=== PATIENT | female | born 1955 | race Caucasian/White ===

== ENCOUNTER 2020-02-29 10:56 | Outpatient (CLI) | payer MEDICARE, OTHER, SELFPAY ==
--- NOTE | 2020-02-29 11:00 | EST_ITS ---
Patient Info Name: Marilou Montez Age: 64 years : 1955 Gender: Female Ht: 62 in Wt: 125 lbs BSA: 1.58 m2 Technical Quality: Good Exam Date: 02/29/2020 11:35 AM Exam Location: [facility] [facility] Patient Status: Outpatient Admit Date: 02/29/2020 Staff Ordering Physician: Dylan Lopez DO Asphalt Engineer: Keaton Chiang RDCS, RT Attending Provider: DYLAN LOPEZ DO Referring Physician: Alfred PITT; Exercise Technologist: Kelsey Mcgovern RDCS Exercise Physician: Dylan Lopez DO Exam Type: CA stress echo Study Info Indications R07.9 - Chest pain, unspecified Treadmill exercise stress echocardiogram is performed. Summary 1. 1. Negative Sekou exercise stress test for ischemic ST changes by ECG criteria. Patient achieved 80% MPHR for age group which reduces sensitivity of the test. 2. 2. Good functional capacity, achieving 10 METs of workload. 3. 3. Mild chronotropic incompetence achieving 124 bpm. 4. 4. Baseline hypertension. 5. 5. Appropriate HR recovery at 1 minute post exercise. 6. 6. Negative stress echocardiogram for ischemia by wall motion analysis. 7. 7. Patient informed of the above results. Stress Echo Findings Left Ventricle Appropriate increase in LV endocardial thickening with systole. Appropriate augmentation of contractility with systole. No wall motion abnormality. Left Ventricle Normal LV systolic function, no wall motion abnormality. Protocol: Sekou Stress ECG Details Stage: REST Duration (min): 3 min : 53 sec Speed (mph): 0.0 Grade (%): 0 HR (bpm): 58 SBP (mmHg): 142 DBP (mmHg): 81 METS: --- Stage: REST Duration (min): 11 min : 4 sec Speed (mph): 0.0 Grade (%): 0 HR (bpm): 66 SBP (mmHg): 142 DBP (mmHg): 81 METS: --- Stage: STAGE 1 Duration (min): 1 min : 0 sec Speed (mph): 1.7 Grade (%): 10 HR (bpm): 84 SBP (mmHg): 142 DBP (mmHg): 81 METS: --- Stage: STAGE 1 Duration (min): 2 min : 0 sec Speed (mph): 1.7 Grade (%): 10 HR (bpm): 96 SBP (mmHg): 142 DBP (mmHg): 81 METS: --- Stage: STAGE 1 Duration (min): 3 min : 0 sec Speed (mph): 1.7 Grade (%): 10 HR (bpm): 99 SBP (mmHg): 142 DBP (mmHg): 81 METS: --- Stage: STAGE 2 Duration (min): 1 min : 0 sec Speed (mph): 2.5 Grade (%): 12 HR (bpm): 104 SBP (mmHg): 142 DBP (mmHg): 81 METS: --- Stage: STAGE 2 Duration (min): 2 min : 0 sec Speed (mph): 2.5 Grade (%): 12 HR (bpm): 108 SBP (mmHg): 193 DBP (mmHg): 31 METS: --- Stage: STAGE 2 Duration (min): 3 min : 0 sec Speed (mph): 2.5 Grade (%): 12 HR (bpm): 110 SBP (mmHg): 193 DBP (mmHg): 31 METS: --- Stage: STAGE 3 Duration (min): 1 min : 0 sec Speed (mph): 3.4 Grade (%): 14 HR (bpm): 118 SBP (mmHg): 196 DBP (mmHg): 50 METS: --- Stage: STAGE 3 Duration (min): 2 min : 0 sec Speed (mph): 3.4 Grade (%): 14 HR (bpm): 123 SBP (mmHg): 196 DBP (mmHg): 50 METS:
== END 2020-02-29 10:57 | disposition home or self-care (01) ==
PROVIDERS: PCP Internal Medicine; Visit Provider Internal Medicine Cardiovascular Disease
DX: R07.9 Chest pain, unspecified (principal)
CPT/HCPCS: 93351

== ENCOUNTER 2021-10-16 00:42 | Day surgery (SDC) | payer MEDICARE, OTHER, SELFPAY ==
[2021-10-16 07:26] VITALS: BP 127/54; PULSE 60; RESP 20; TEMP 36.1; O2SAT 99; BMI 22.6
[2021-10-16] MEDS: LACTATED RINGERS 1,000 ML 150 ML IV CONT (07:39)
--- NOTE | 2021-10-16 08:02 | WPDGICN ---
Assessment and Plan Assessment and plan (1) Family history of colon cancer in mother: Code(s): Z80.0 - Family history of malignant neoplasm of digestive organs Status: Acute Assessment and Plan: Patient's mother has had colon cancer. Plan is for patient has screening surveillance colonoscopy at this time. Consider this at 5 year intervals in the future. GI Consult Note Consult date/time: 10/16/21 08:02 HPI: Marilou Montez is a 65 year old female Presents for screening colonoscopy. Patient's current weight appetite bowel movements are normal. She denies abdominal pain. She has had no bleeding. Family history is significant that her mother had colon cancer. Patient presents today for neoplasia screening. Review of Systems Review of Systems: All systems reviewed & are unremarkable except as noted in HPI and below PMFSH Past Medical History Medical History (Updated 10/16/21 @ 08:03 by Braeden Navarro MD) High cholesterol History of tumor removed on face Thyroid disease Surgical History Surgical History (Updated 02/20/21 @ 09:49 by Jocelin Hunt RN) H/O: hysterectomy Family History Family History Father Heart problem Mother Dementia Sibling Multiple sclerosis Other Diabetes mellitus Heart disease Hypertension Cancer Social History Social History Smoking status: Never smoker Alcohol intake: current Drinks per week: 1 Substance use: never Substance use type: does not use Living arrangements: with friend(s) Spiritual care concerns: No Meds Home Medications and Allergies Home Medications Medication Instructions Recorded Confirmed Type citalopram 20 mg tablet 20 mg PO DAILY 04/27/19 09/29/21 History simvastatin 10 mg tablet 10 mg PO DAILY 04/27/19 09/29/21 History thyroid (pork) 60 mg tablet 60 mg PO DAILY 04/27/19 09/29/21 History dextroamphetamine-amphetamine 10 10 mg PO QPM tablet 02/20/21 09/29/21 History mg tablet dextroamphetamine-amphetamine 20 20 mg PO QAM tablet 02/20/21 09/29/21 History mg tablet Allergies Allergy/AdvReac Type Severity Reaction Status Date / Time No Known Allergies Allergy Verified 10/16/21 07:25 Vital Signs Vital Signs - 24 hr 10/16/21 07:26 Temperature 96.9 F L Pulse Rate 60 Respiratory Rate 20 Blood Pressure 127/54 L Pulse Oximetry 99 Exam Narrative: Physical exam reveals patient be alert. Vital signs stable. HEENT exam is unremarkable. Patient is anicteric. Lungs are clear to auscultation and percussion. Heart is without murmur or extra sounds. Abdominal exam bowel sounds are present soft nontender with no organomegaly. Digital external rectal exam is normal.
--- NOTE | 2021-10-16 08:17 | P.PNAN_ITS ---
Anes - Initial Pre Proc Eval Procedure: Operation Date: 10/16/21 08:30 Proposed Procedures p Screening Colonoscopy - Braeden Navarro MD Date/Time: 10/16/21 08:17 Surgeon: Braeden Navarro MD Pre Op Diagnosis: neoplasm screening Patient Data Age: 65 Gender: F Height: 1.55 m Weight: 54.3 kg Last Vital Signs Temp 96.9 F L 10/16/21 07:26 Pulse 60 10/16/21 07:26 Resp 20 10/16/21 07:26 BP 127/54 L 10/16/21 07:26 Pulse Ox 99 10/16/21 07:26 Allergies Allergy/AdvReac Type Severity Reaction Status Date / Time No Known Allergies Allergy Verified 10/16/21 07:25 Home Medications Medication Instructions Recorded Confirmed Type citalopram 20 mg tablet 20 mg PO DAILY 04/27/19 09/29/21 History simvastatin 10 mg tablet 10 mg PO DAILY 04/27/19 09/29/21 History thyroid (pork) 60 mg tablet 60 mg PO DAILY 04/27/19 09/29/21 History dextroamphetamine-amphetamine 10 10 mg PO QPM tablet 02/20/21 09/29/21 History mg tablet dextroamphetamine-amphetamine 20 20 mg PO QAM tablet 02/20/21 09/29/21 History mg tablet Patient hx anesthesia problems: none Family hx anesthesia problems: none Results Review: All pre-operative results and documents have been reviewed as part of the pre-operative evaluation. [facility] Past Medical History Medical History (Updated 10/16/21 @ 08:03 by Braeden Navarro MD) High cholesterol History of tumor removed on face Thyroid disease Surgical History Surgical History (Updated 02/20/21 @ 09:49 by Jocelin Hunt RN) H/O: hysterectomy Family History Family History Father Heart problem Mother Dementia Sibling Multiple sclerosis Other Diabetes mellitus Heart disease Hypertension Cancer Social History Social History Smoking status: Never smoker Alcohol intake: current Drinks per week: 1 Substance use: never Substance use type: does not use Living arrangements: with friend(s) Spiritual care concerns: No Anes - Eval Final PreProcedure Day of Procedure 05/12/22 08:17 Patient weight: normal Heart: regular rate and rhythm Lungs: clear to auscultation Airway: Mallampati scale class II Neurological: alert and oriented Last oral intake: >/= 8 hours ASA classification: II Emergent: no Anesthetic plan: proceed Anesthesia type and monitoring: general GIVS and standard monitoring Results Review: All pre-operative results and documents have been reviewed as part of the pre-operative evaluation. Informed Consent: The patient's anesthetic plan and its attendant risks and benefits were discussed with the patient/family/POA. Questions were solicited and answers provided to the satisfaction of the patient/family/POA.
[2021-10-16] MEDS: SIMETHICONE ORAL SUSPENSION 20 MG/0.3 ML 30 ML BOTTLE 0.6 ML IRRIGATION (09:03)
[2021-10-16 09:12] VITALS: BP 94/52; PULSE 62; RESP 16; O2SAT 97
[2021-10-16 09:22] VITALS: BP 104/61; PULSE 60; RESP 15; O2SAT 98
[2021-10-16 09:32] VITALS: BP 119/56; PULSE 53; RESP 23; O2SAT 98
== END 2021-10-16 09:39 | disposition home or self-care (01) ==
PROVIDERS: PCP Internal Medicine; Visit Provider Internal Medicine Gastroenterology
PROC: 0DJD8ZZ Inspection of Lower Intestinal Tract, Via Natural or Artificial Opening Endoscopic (ICD-10-PCS; CPT 45378; principal; 2021-10-16 08:30)
DX: Z12.11 Encounter for screening for malignant neoplasm of colon (principal); K64.8 Other hemorrhoids; Z80.0 Family history of malignant neoplasm of digestive organs; E78.00 Pure hypercholesterolemia, unspecified; E07.9 Disorder of thyroid, unspecified
CPT/HCPCS: G0105; J2001; J2704; J7120

== ENCOUNTER 2023-01-11 09:26 | Outpatient (CLI) | payer MEDICARE, OTHER, SELFPAY ==
--- NOTE | ~2023-01-11 | NM_ITS ---
EXAMINATION: NM shy stress w perfusion DATE: 01/11/2023 12:01 INDICATION: Chest pain TECHNIQUE: Rest images were obtained following intravenous administration of 9.44 mCi Tc99m tetrofosm in (Myoview). The patient was infused intravenously with Lexiscan (Regadenoson). Then, 30 mCi Tc99m t etrofosmin (Myoview) was administered intravenously, and stress images were obtained. Data was recons tructed into short axis and horizontal and vertical long axis SPECT images. Gated SPECT images were a lso obtained. COMPARISON: None. FINDINGS: There is no definite reversible or fixed perfusion abnormality to suggest ischemia or infar ction. There is normal left ventricular chamber size, wall motion and ejection fraction. Left ventr icular ejection fraction measures >70%. IMPRESSION: 1. Normal myocardial perfusion at rest and during stress. 2. Left ventricular ejection fraction measuring >70%. Reviewed, dictated and finalized at location B.
--- NOTE | 2023-01-11 09:40 | EST_ITS ---
Patient Info Name: Marilou Montez Age: 67 years : 1955 Gender: Female Ht: 62 in Wt: 125 lbs BSA: 1.58 m2 HR: 60 bpm BP: 132 / 59 mmHg Heart Rhythm: Sinus Rhythm Exam Date: 01/11/2023 10:39 AM Exam Location: [facility] Stress Patient Status: Outpatient Admit Date: 01/11/2023 Staff Ordering Physician: Dylan Simon DO Attending Provider: Dylan Simon DO Exercise Technologist: Keisha Billy CT Nurse: Giulia Kirk APN Exercise Physician: Dylan Simon DO Exam Type: CA stress shy w NM Study Info Indications R07.89 - Other chest pain A regadenoson stress test was performed. Summary 1. 1. Negative lexiscan stress test for ischemic ST changes by ECG criteria. 2. 2. Stable hemodynamics throughout the test. 3. 3. Nuclear scan to follow and will be reported separately. Please correlate with it. 4. 4. Patient informed of the above results. Protocol: Lexiscan Stress ECG Details Stage: REST Duration (min): 1 min : 3 sec HR (bpm): 60 SBP (mmHg): 132 DBP (mmHg): 59 Stage: REST Duration (min): 13 min : 25 sec HR (bpm): 63 SBP (mmHg): 132 DBP (mmHg): 59 Stage: REST Duration (min): 13 min : 30 sec HR (bpm): 62 SBP (mmHg): 132 DBP (mmHg): 59 Stage: STAGE 1 Duration (min): 0 min : 59 sec HR (bpm): 74 SBP (mmHg): 126 DBP (mmHg): 44 Stage: RECOVERY Duration (min): 1 min : 0 sec HR (bpm): 79 SBP (mmHg): 126 DBP (mmHg): 44 Stage: RECOVERY Duration (min): 2 min : 0 sec HR (bpm): 78 SBP (mmHg): 126 DBP (mmHg): 44 Stage: RECOVERY Duration (min): 3 min : 0 sec HR (bpm): 73 SBP (mmHg): 126 DBP (mmHg): 44 Stage: RECOVERY Duration (min): 3 min : 6 sec HR (bpm): 73 SBP (mmHg): 126 DBP (mmHg): 44 Rest HR: 62 bpm Peak HR: 80 bpm Rest Sys BP: 132 mmHg Peak Sys BP: 126 mmHg Max Pred HR: 151 bpm % Max Pred HR: 53 % Target HR: 128 bpm Max RPP: 10,080 bpm*mmHg Termination Reason: Completed protocol Cardiac Symptoms: Shortness of breath Total Time: 1 min : 0 sec Rest Lacy BP: 59 mmHg Peak Lacy BP: 44 mmHg Total Dose: 0.4 mg Resting ECG Sinus rhythm. Stress ECG No ST changes. Arrhythmias None. Report Signatures
== END 2023-01-11 09:27 | disposition home or self-care (01) ==
PROVIDERS: PCP Physician Assistant Medical; Visit Provider Internal Medicine Cardiovascular Disease
DX: R07.9 Chest pain, unspecified (principal)
CPT/HCPCS: 78452; 93017; A9502; J2785

== ENCOUNTER 2023-03-31 08:26 | Outpatient (CLI) | payer MEDICARE, OTHER, SELFPAY ==
--- NOTE | 2023-04-18 05:24 | WPDHOMESLEEP ---
Sleep Study - Home Unattended Date of Study: 03/31/23 Ordering Provider: Dylan Simon DO Interpreting Provider: Nicole Millan MD Home Sleep Study Type: Watch PAT Height: 1.57 m Weight: 58.967 kg Body Mass Index: 23.8 Neck Circumference (inches): 13 [place]: 5 Reason for Sleep Study Constant fatigue Sleep History Marilou Montez is a 67-year-old woman with constant fatigue. Some days are worse than others. After 3 or 4 hours of being awake she has no energy. She never awakens from sleep short of breath. She never wakes at night with heartburn, belching or coughing.??She never snores, never snores loudly enough that others complain. She rarely has trouble sleeping when she has a cold. She never wakes up gasping for breath during the night. She never has breathing problems at night. She never sweats excessively at night. She never notices her heart pounding or beating irregularly during the night. She rarely falls asleep during the day. She never falls asleep involuntarily, never falls asleep while driving. She never experiences loss of muscle tone with strong emotion. She never feels paralyzed on waking or falling asleep. She never experiences vivid dreams upon waking or falling asleep. She never feels afraid of going to sleep. She never has nightmares. She occasionally recalls her dreams. She rarely has thoughts racing through her mind. She rarely feels sad or depressed. She rarely feels anxiety. She never notices parts of her body jerk. She never kicks during the night. She never feels crawling or aching feelings in her legs. She never feels leg pain at night. She never has morning jaw pain, and rarely grinds her teeth at night. She never is awakened by pain during the night. She never wakes up feeling stiff in the morning, never wakes feeling sore or achy in the morning. She never awakens with pain in her neck, spine, or joints. She has headaches, fatigue and memory problems. Normal bedtime is 8:00 p.m., going to watch TV. She is turning the TV off in going to sleep between 830 and 10:00 p.m.. She typically wakes 1-2 times at night, checks the time and returns to sleep quickly. She wakes the morning at 7:30 a.m.. She keeps the same schedule on weekends. She estimates getting between 7 and 8 hours of sleep at night. She rests in the afternoon, and a short nap lasting 10-15 minutes may be refreshing. She feels good most mornings when she wakes but feels run down 3-4 hours later. She feels better in the morning compared to other times of day. Habits:??Tobacco: Never Caffeine: 1-2 cups in the morning. Alcohol: none Recreational substances: none [facility] Past Medical History Medical History ADD (attention deficit disorder) Arthritis High cholesterol History of tumor removed on face Hypertension Osteopenia Thyroid disease Vertigo, benign paroxysmal Surgical History Surgical History H/O: hysterectomy Family History Family History Father Heart problem Mother Dementia Carcinoma of colon Diabetes mellitus Hypertension Heart problem Sibling Multiple sclerosis Other Diabetes mellitus Heart disease Hypertension Cancer Social History Social History Smoking status: Never smoker Alcohol intake: current Drinks per week: 1 Substance use: never Substance use type: does not use Lack of Transportation: No Lack of Food: Never True Current Housing: I Have Housing Concerned About Future Housing: No Difficulty Paying Gas/Electric Bills: No Difficulty Paying for Meds: No Currently Unemployed: No Education: High School Diploma/GED Difficulty w/ Childcare or Family Care: No Living arrangements: with friend(s) Occupation/Education: retired [employer]
[2023-04-19 09:39] VITALS: BMI 23.8
== END 2023-04-01 12:39 | disposition home or self-care (01) ==
LOC: ANHCSM 08:26
PROVIDERS: PCP Physician Assistant Medical; Visit Provider Internal Medicine Cardiovascular Disease
DX: G47.10 Hypersomnia, unspecified (principal)
CPT/HCPCS: 95800

== ENCOUNTER 2023-08-02 03:32 | Day surgery (SDC) | payer MEDICARE, OTHER, SELFPAY ==
[2023-07-30 11:03] VITALS: BMI 23.2
[2023-08-02 08:29] VITALS: BP 157/59; PULSE 64; RESP 18; TEMP 36.6; O2SAT 100
[2023-08-02] MEDS: LACTATED RINGERS 1,000 ML 150 ML IV CONT (08:38)
--- NOTE | 2023-08-02 08:51 | WPDANESEPPF ---
Anes - Initial Pre Proc Eval Procedure: Operation Date: 08/02/23 09:30 Proposed Procedures p Esophagogastroduodenoscopy - Lan Galeas MD Date/Time: 08/02/23 08:51 Surgeon: Lan Galeas MD Pre Op Diagnosis: dysphagia Patient Data Age: 67 Gender: F Height: 1.56 m Weight: 58 kg Last Vital Signs Temp 36.6 C 08/02/23 08:29 Pulse 64 08/02/23 08:29 Resp 18 08/02/23 08:29 BP 157/59 H 08/02/23 08:29 Pulse Ox 100 08/02/23 08:29 O2 Del Method Room Air 08/02/23 08:29 Allergies Allergy/AdvReac Type Severity Reaction Status Date / Time lisinopril Allergy Intermediate Cough Verified 08/02/23 08:28 levothyroxine AdvReac Unknown Unknown Verified 08/02/23 08:28 levothyroxine sodium AdvReac Unknown Other Verified 08/02/23 08:28 [From Synthroid] Home Medications Medication Instructions Recorded Confirmed Type fluticasone propionate 50 1 spray intranasal DAILY PRN 04/17/22 07/30/23 History mcg/actuation nasal Allergy Symptoms spray,suspension (Flonase Allergy Relief) citalopram 20 mg tablet 20 mg PO DAILY #90 tabs 01/25/23 07/30/23 Rx olmesartan 20 mg tablet 10 mg PO DAILY #45 tabs 01/25/23 07/30/23 Rx simvastatin 10 mg tablet See Rx Instructions .Route 04/26/23 07/30/23 Rx .COMPLEX #90 tabs thyroid (pork) 60 mg tablet (THERAPEUTIC DIETITIAN See Rx Instructions .Route 04/26/23 07/30/23 Rx Thyroid) .COMPLEX #90 tabs dextroamphetamine-amphetamine 10 10 mg PO QPM #30 tabs 07/28/23 07/30/23 Rx mg tablet (Adderall) dextroamphetamine-amphetamine 20 20 mg PO QAM #30 tabs 07/28/23 07/30/23 Rx mg tablet (Adderall) pantoprazole 40 mg tablet,delayed 40 mg PO DAILY #30 tabs 07/28/23 07/30/23 Rx release (Protonix) cetirizine 10 mg tablet (Zyrtec) 10 mg PO DAILY PRN Allergy Symptoms 07/30/23 07/30/23 History Patient hx anesthesia problems: none Family hx anesthesia problems: none Results Review: All pre-operative results and documents have been reviewed as part of the pre-operative evaluation. [facility] Past Medical History Medical History ADD (attention deficit disorder) Arthritis Chronotropic incompetence Dyspnea on exertion High cholesterol History of tumor removed on face Hypertension Mediastinal mass sub sternal thyroid goiter, biopsy non-diagnostic, nuclear thyroid scan +uptake c/w thyroid tissue. 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, excised by Dr Shanks Family History Family History Father Heart problem Mother Dementia Carcinoma of colon Diabetes mellitus Hypertension Heart problem Sibling Multiple sclerosis Other Diabetes mellitus Heart disease Hypertension Cancer Social History Social History Smoking status: Never smoker Alcohol intake: current Drinks per week: 1 Substance use: never Substance use type: does not use Lack of Transportation: No Lack of Food: Never True Current Housing: I Have Housing Concerned About Future Housing: No Difficulty Paying Gas/Electric Bills: No Difficulty Paying for Meds: No Currently Unemployed: No Education: High School Diploma/GED Difficulty w/ Childcare or Family Care: No Living arrangements: with family Occupation/Education: retired Gender identity (if verbalized by the patient): Female Sexual Orientation (if Verbalized by the Patient):
--- NOTE | 2023-08-02 09:03 | PM.HPGS ---
History of Present Illness History of Present Illness Consent: Risks, benefits, and alternatives have been discussed and questions answered. Patient agrees to proceed with procedure. Chief complaint: dysphagia Narrative: Marilou Montez is a 67 year old female with intermittent discomfort after eating for 1.5 years but does not happen often, never had egd Review of Systems Constitutional: Constitutional: Denies headache(s) and Denies weakness Eyes: Eyes: Denies blurry vision ENT: Reports Normal hearing present, Denies headache(s) and Denies neck pain Cardiovascular: Cardiovascular: Denies chest pain and Denies dyspnea Respiratory: Respiratory: Denies dyspnea Gastrointestinal: Gastrointestinal: Reports no additional gastrointestinal complaints Genitourinary: Genitourinary: Denies dysuria Musculoskeletal: Musculoskeletal: Denies neck pain Integumentary/Breasts: Skin/Breast: Denies dry skin Neurologic: Reports Normal hearing present, Denies headache(s) and Denies weakness Psychiatric: Psychiatric: Denies anxiety Endocrine: Endocrine: Denies change in body appearance Hematologic/Lymphatic: Hematologic/Lymphatic: Denies easy bleeding Allergic/Immunologic: Allergic/Immunologic: Denies urticaria PMFSH Past Medical History Medical History ADD (attention deficit disorder) Arthritis Chronotropic incompetence Dyspnea on exertion High cholesterol History of tumor removed on face Hypertension Mediastinal mass sub sternal thyroid goiter, biopsy non-diagnostic, nuclear thyroid scan +uptake c/w thyroid tissue. 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, excised by Dr Shanks Family History Family History Father Heart problem Mother Dementia Carcinoma of colon Diabetes mellitus Hypertension Heart problem Sibling Multiple sclerosis Other Diabetes mellitus Heart disease Hypertension Cancer Social History Social History Smoking status: Never smoker Alcohol intake: current Drinks per week: 1 Substance use: never Substance use type: does not use Lack of Transportation: No Lack of Food: Never True Current Housing: I Have Housing Concerned About Future Housing: No Difficulty Paying Gas/Electric Bills: No Difficulty Paying for Meds: No Currently Unemployed: No Education: High School Diploma/GED Difficulty w/ Childcare or Family Care: No Living arrangements: with family Occupation/Education: retired Gender identity (if verbalized by the patient): Female Sexual Orientation (if Verbalized by the Patient): Straight or Heterosexual Spiritual care concerns: No Meds Home Medications and Allergies Home Medications Medication Instructions Recorded Confirmed Type fluticasone propionate 50 1 spray intranasal DAILY PRN 04/17/22 07/30/23 History mcg/actuation nasal Allergy Symptoms spray,suspension (Flonase Allergy Relief) citalopram 20 mg tablet 20 mg PO DAILY #90 tabs 01/25/23 07/30/23 Rx olmesartan 20 mg tablet 10 mg PO DAILY #45 tabs 01/25/23 07/30/23 Rx simvastatin 10 mg tablet See Rx Instructions .Route 04/26/23 07/30/23 Rx .COMPLEX #90 tabs thyroid (pork) 60 mg tablet (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
[2023-08-02 09:22] VITALS: BP 106/55; PULSE 61; RESP 16; O2SAT 97
[2023-08-02 09:32] VITALS: BP 118/61; PULSE 60; RESP 30; O2SAT 98
[2023-08-02 09:42] VITALS: BP 131/68; PULSE 60; RESP 16; O2SAT 98
== END 2023-08-02 09:59 | disposition home or self-care (01) ==
PROVIDERS: PCP Physician Assistant Medical; Visit Provider Internal Medicine Gastroenterology
PROC: 0DJ08ZZ Inspection of Upper Intestinal Tract, Via Natural or Artificial Opening Endoscopic (ICD-10-PCS; CPT 43235; principal; 2023-08-02 09:30)
DX: R13.10 Dysphagia, unspecified (principal); K21.9 Gastro-esophageal reflux disease without esophagitis; I10 Essential (primary) hypertension; E78.00 Pure hypercholesterolemia, unspecified; R73.03 Prediabetes; E07.9 Disorder of thyroid, unspecified; E55.9 Vitamin D deficiency, unspecified; M85.80 Other specified disorders of bone density and structure, unspecified site; F98.8 Other specified behavioral and emotional disorders with onset usually occurring in childhood and adolescence; I45.89 Other specified conduction disorders; Z86.018 Personal history of other benign neoplasm; Z80.0 Family history of malignant neoplasm of digestive organs; Z82.49 Family history of ischemic heart disease and other diseases of the circulatory system
CPT/HCPCS: 43239; 88305; J2704; J7120

== ENCOUNTER 2023-08-05 08:42 | Outpatient (CLI) | payer MEDICARE, OTHER, SELFPAY ==
--- NOTE | ~2023-08-05 | DEXA_ITS ---
Bone Density Report Name: JANNY HERNANDEZ Age: 67 Sex: Female Ethnicity: White Date of : 1955 Indication: postmenopausal; screening for osteoporosis; height loss; hysterectomy; Referring Provider: KEVON BUNCH I. Study: Bone densitometry was performed. Exam Date: August 05, 2023 Accession number: [id number] Bone Density: Region BMD T-score Z-score Classification AP Spine(L1-L4) 0.944 -0.9 1.2 Normal Femoral Neck (Left) 0.627 -2.0 -0.2 Osteopenia Total Hip (Left) 0.885 -0.5 1.0 Normal Femoral Neck (Right) 0.583 -2.4 -0.6 Osteopenia Total Hip (Right) 0.862 -0.7 0.8 Normal Total Hip Mean 0.873 -0.6 0.9 Normal World Health Organization criteria for BMD impression classify patients as: Normal (T-score at or above -1.0), Osteopenia (T-score between -1.0 and -2.5), or Osteoporosis (T-score at or below -2.5). 10-year Fracture Risk(1): Major Osteoporotic Fracture 14% Hip Fracture 3.1% Reported Risk Factors: [place] (), Neck BMD=0.583, BMI=25.6 (1) FRAX(R) Version 3.08. Fracture probability calculated for an untreated patient. Fracture probability may be lower if the patient has received treatment. Clinical Information Provided by Patient: Has used the following medications: Vitamin D, Calcium Has the following medical conditions: Hysterectomy, complete @38 Patient maximum height was 62 Menopause Age: 38 No regular weight bearing exercise Does not regularly consume dairy products Drinks caffeinated beverages Onset of menses at age 13 Number of children 2 Missed period for more than 6 months in a row Impression: The patient has low bone mass, based on the Right Femoral Neck T-score. The patient has an estimated ten-year risk of hip fracture of 3.1% and an estimated ten-year risk of major fracture of 14%, based on the WHO FRAX algorithm. Discussion: BONE DENSITY IS LOW AT ONE OR MORE SKELETAL SITES. THE PATIENT'S BMD AND CLINICAL RISK FACTORS CONTRIBUTE TO THIS PATIENT'S INCREASED RISK OF FRACTURE. This patient's lowest T-score is low at one or more skeletal sites. It meets the World Health Organization's (WHO) criteria for ?low bone mass? (T-score between -1.0 and -2.5). The patient's 10-year risk of hip fracture as calculated by FRAX exceeds the threshold where pharmacological therapy is recommended by the National Osteoporosis Foundation (NOF). However, all treatment decisions require clinical judgment and consideration of individual patient factors, including patient preferences, comorbidities, previous drug use, risk factors not captured in the FRAX model (e.g., frailty, falls, vitamin D deficiency, increased bone turnover, interval significant decline in bone density) and possible under or overestimation of fracture risk by FRAX. The patient should follow a healthful
--- NOTE | ~2023-08-05 | MM_ITS ---
EXAMINATION: MM screening annabelle BI w dilip HISTORY: Screening TECHNIQUE: Craniocaudal and mediolateral oblique 3-D tomosynthesis images were obtained and synthetic 2-D images were generated. CAD analysis was submitted and interpreted. COMPARISON: No prior mammogram is available for comparison at this institution. BREAST PARENCHYMAL COMPOSITION: There are scattered areas of fibroglandular density. FINDINGS: There is a focal asymmetry laterally in the right breast on CC view. The left breast is unr emarkable without suspicious mass, calcification or architectural distortion to suggest malignancy. IMPRESSION: 1. Focal right breast asymmetry laterally in the right breast on CC view. 2. Additional mammographic views and possible breast ultrasound are recommended. BI-RADS Category 0: Incomplete: Needs additional imaging evaluation. Reviewed, dictated and finalized at location A. E SEXUAL ASSAULT IMPRESSION: 1. Focal right breast asymmetry laterally in the right breast on CC view. 2. Additional mammographic views and possible breast ultrasound are recommended . BI-RADS Category 0: Incomplete: Needs additional imaging evaluation.
== END 2023-08-05 08:43 | disposition home or self-care (01) ==
PROVIDERS: PCP Physician Assistant Medical; Visit Provider Physician Assistant Medical
DX: Z12.31 Encounter for screening mammogram for malignant neoplasm of breast (principal); E28.39 Other primary ovarian failure; R92.8 Other abnormal and inconclusive findings on diagnostic imaging of breast; M85.852 Other specified disorders of bone density and structure, left thigh; M85.851 Other specified disorders of bone density and structure, right thigh
CPT/HCPCS: 77063; 77067; 77080

== ENCOUNTER 2023-08-27 10:52 | Outpatient (CLI) | payer MEDICARE, OTHER, SELFPAY ==
--- NOTE | ~2023-08-27 | MMUS_ITS ---
EXAMINATION: MM diagnostic annabelle RT w dilip, US breast RT limited HISTORY: Follow-up right breast asymmetry TECHNIQUE: Additional 3-D tomosynthesis images of the right breast were performed and synthetic 2-D i mages were generated. CAD analysis was submitted and interpreted. High resolution Limited right breas t ultrasound was performed. COMPARISON: 08/05/2023 BREAST PARENCHYMAL COMPOSITION: Not dense: There are scattered areas of fibroglandular density. FINDINGS: MAMMOGRAPHIC FINDINGS: Focal asymmetry laterally in the right breast compresses with spot views, compatible with superimpose d fibroglandular tissue. There are no suspicious masses, calcifications or architectural distortion i n the right breast to suggest malignancy. ULTRASOUND: Limited right breast ultrasound: Normal heterogeneous echotexture without focal solid or cystic mass. IMPRESSION: 1. No evidence for malignancy in the right breast. 2. Routine yearly screening mammogram and regular clinical breast examination are recommended. BI-RADS Category 1: Negative Reviewed, dictated and finalized at location A. IMPRESSION: 1. No evidence for malignancy in the right breast. 2. Routine yearly screening mammogram and regular clinical breast examination a re recommended. BI-RADS Category 1: Negative
== END 2023-08-27 10:53 | disposition home or self-care (01) ==
LOC: ANHIMG 10:53
PROVIDERS: PCP Physician Assistant Medical; Visit Provider Physician Assistant Medical
DX: R92.8 Other abnormal and inconclusive findings on diagnostic imaging of breast (principal)
CPT/HCPCS: 76642; 77061; 77065; G0279

== ENCOUNTER 2024-02-28 08:43 | Outpatient (CLI) | payer MEDICARE, OTHER, SELFPAY ==
--- NOTE | 2024-02-28 08:51 | EST_ITS ---
Patient Info Name: Marilou Montez Age: 68 years : 1955 Gender: Female Ht: 61 in Wt: 125 lbs BSA: 1.57 m2 HR: 57 bpm BP: 167 / 78 mmHg Exam Date: 02/28/2024 9:39 AM Exam Location: Echo Lab Patient Status: Outpatient Admit Date: 02/28/2024 Staff Ordering Physician: Dylan Simon DO Attending Provider: Dylan Simon DO Exercise Technologist: Georgette Mercado [facility] Exercise Physician: Dylan Simon DO Exam Type: CA stress test treadmill Study Info A treadmill exercise stress test was performed. Summary 1. 1. Negative Sekou exercise stress test for ischemic ST changes by ECG criteria. However, patient achieved only 80% of MPHR for age group which reduces sensitivity of the test. 2. 2. Good functional capacity, achieving 7.7 METs of workload. 3. 3. Mild chronotropic incompetence, achieving HR of 120 bpm. 4. 4. Appropriate HR recovery at 1 minute post exercise. 5. 5. No imaging with stress testing. 6. 6. Patient informed of the above results. Protocol: Sekou Stress ECG Details Stage: REST Duration (min): 1 min : 40 sec Speed (mph): 0.0 Grade (%): 0 HR (bpm): 57 SBP (mmHg): 167 DBP (mmHg): 78 METS: --- Stage: REST Duration (min): 5 min : 27 sec Speed (mph): 0.0 Grade (%): 0 HR (bpm): 61 SBP (mmHg): 167 DBP (mmHg): 78 METS: --- Stage: STAGE 1 Duration (min): 1 min : 0 sec Speed (mph): 1.7 Grade (%): 10 HR (bpm): 87 SBP (mmHg): 167 DBP (mmHg): 78 METS: --- Stage: STAGE 1 Duration (min): 2 min : 0 sec Speed (mph): 1.7 Grade (%): 10 HR (bpm): 99 SBP (mmHg): 167 DBP (mmHg): 78 METS: --- Stage: STAGE 1 Duration (min): 3 min : 0 sec Speed (mph): 1.7 Grade (%): 10 HR (bpm): 102 SBP (mmHg): 166 DBP (mmHg): 62 METS: --- Stage: STAGE 2 Duration (min): 1 min : 0 sec Speed (mph): 2.5 Grade (%): 12 HR (bpm): 109 SBP (mmHg): 166 DBP (mmHg): 62 METS: --- Stage: STAGE 2 Duration (min): 2 min : 0 sec Speed (mph): 2.5 Grade (%): 12 HR (bpm): 113 SBP (mmHg): 175 DBP (mmHg): 61 METS: --- Stage: STAGE 2 Duration (min): 3 min : 0 sec Speed (mph): 2.5 Grade (%): 12 HR (bpm): 116 SBP (mmHg): 175 DBP (mmHg): 61 METS: --- Stage: STAGE 3 Duration (min): 0 min : 24 sec Speed (mph): 3.4 Grade (%): 14 HR (bpm): 119 SBP (mmHg): 175 DBP (mmHg): 61 METS: --- Stage: RECOVERY Duration (min): 0 min : 35 sec Speed (mph): 0.0 Grade (%): 0 HR (bpm): 113 SBP (mmHg): 170 DBP (mmHg): 67 METS: --- Stage: RECOVERY Duration (min): 1 min : 35 sec Speed (mph): 0.0 Grade (%): 0 HR (bpm): 97 SBP (mmHg): 170 DBP (mmHg): 67 METS: --- Stage: RECOVERY Duration (min): 2 min : 35 sec Speed (mph): 0.0 Grade (%): 0 HR (bpm): 81 SBP (mmHg): 192 DBP (mmHg): 74 METS: --- Stage: RECOVERY Duration (min): 3 min : 35 sec Speed (mph): 0.0 Grade (%): 0 HR (bpm): 79 SBP (mmHg):
--- NOTE | 2024-02-28 08:52 | ECHO_ITS ---
Patient Info Name: Marilou Montez Age: 68 years : 1955 Gender: Female Ht: 62 in Wt: 125 lbs BSA: 1.58 m2 HR: 60 bpm BP: 168 / 81 mmHg Technical Quality: Good Exam Date: 02/28/2024 9:10 AM Exam Location: Echo Lab Patient Status: Outpatient Admit Date: 02/28/2024 Staff Ordering Physician: Dylan Simon DO Plastic Tile Setter: Princess Kaplan RDCS Attending Provider: Dylan Simon DO Referring Physician: Alfred PITT; Exam Type: CA echo doppler color flow Study Info Indications - other forms of dyspnea Complete two-dimensional, color flow and Doppler transthoracic echocardiogram is performed. Summary 1. Complete two-dimensional, color flow and Doppler transthoracic echocardiogram is performed. 2. Left ventricular chamber dimension is normal. 3. Left ventricular systolic function is normal, estimated at 60-65%. 4. The left ventricular diastolic function is grade I diastolic dysfunction. 5. E/e' 14 is mildly elevated. 6. Left atrial chamber dimension is mildly enlarged. 7. There is mild aortic valve sclerosis. 8. There is mild mitral valve regurgitation. 9. No pulmonary hypertension, estimated pulmonary arterial systolic pressure is 24 mmHg. 10. There is trivial pericardial effusion. Left Ventricle E/e' 14 is mildly elevated. Left ventricular chamber dimension is normal. Left ventricular systolic function is normal, estimated at 60-65%. The left ventricular diastolic function is grade I diastolic dysfunction. Right Ventricle Right ventricular systolic function is normal and with normal TAPSE 3.8 cm. Right ventricular chamber dimension is normal. Left Atria Left atrial chamber dimension is mildly enlarged. Right Atria Right atrial chamber dimension is normal. Aortic Valve The aortic valve is trileaflet. There is mild aortic valve sclerosis. There is no aortic valve stenosis. There is no aortic valve regurgitation. Pulmonic Valve There is no pulmonic regurgitation. Mitral Valve There is no mitral valve stenosis. There is mild mitral valve regurgitation. Tricuspid Valve There is no tricuspid valve regurgitation. No pulmonary hypertension, estimated pulmonary arterial systolic pressure is 24 mmHg. Pericardium/Pleural There is trivial pericardial effusion. Inferior Vena Cava Normal inferior vena cava with >50% collapse upon inspiration consistent with normal right atrial pressure, 5 mmHg. Aorta The aortic root size at the sinus of Valsalva is normal. Left Ventricular Outflow Tract Name Value Normal LVOT 2D LVOT Diameter 1.8 cm LVOT Doppler LVOT Peak Gradient 3 mmHg LVOT Mean Gradient 2 mmHg LVOT VTI 21 cm LVOT VTI/AV VTI Ratio 0.6 LVOT Stroke Volume 55 ml LVOT CO 3.1 l/min LVOT CI 2.0 l/min/m2 Pulmonic Valve Name Value Normal PV Doppler
== END 2024-02-28 08:44 | disposition home or self-care (01) ==
PROVIDERS: PCP Physician Assistant Medical; Visit Provider Internal Medicine Cardiovascular Disease
DX: I45.89 Other specified conduction disorders (principal); R06.09 Other forms of dyspnea
CPT/HCPCS: 93017; 93306

== ENCOUNTER 2024-12-28 10:07 | Outpatient (CLI) | payer MEDICARE, OTHER, SELFPAY ==
--- NOTE | ~2024-12-28 | MM_ITS ---
EXAMINATION: MM screening [facility] BI w dilip HISTORY: Screening TECHNIQUE: Craniocaudal and mediolateral oblique 3-D tomosynthesis images were obtained and synthetic 2-D images were generated. CAD analysis was submitted and interpreted. COMPARISON: Comparison to multiple prior studies sequentially, with oldest reviewed study dated 10/28. BREAST PARENCHYMAL COMPOSITION: There are scattered areas of fibroglandular density. FINDINGS: There is no evidence of suspicious mass, calcification, or architectural distortion to sug gest malignancy in either breast. Scattered benign-appearing calcifications are present. IMPRESSION: 1. No mammographic evidence of malignancy. 2. Recommend routine screening mammography in one year. BI-RADS Category 2: Benign finding(s). Reviewed, dictated and finalized at location B.
--- OUTSIDE RECORDS SUMMARY | 2024-12-28 10:12 | XMS_ITS | Encounter Summary ---
Author Organization [facility] Address [facility] [place] [address] Care Team Providers Care Greige Goods Examiner Name Role Phone Manish Quiñonez MD Primary Care Provider [phone] Cristino Torres MD Unavailable [phone] Scott Phippsjoycenabil SPEARS Unavailable [phone] Anita Hernandez Primary Care Provider [phone] Encounter Details Date Type Department Care Team (Late st Contact Info) Description 04/29/2020 Hospital Orders Only [employer] Work[employer] [address] [facility] [facility] [place], [place] [id number] José Shepard MD [address] [facility] [address] [place], [place] [id number] Social History Tobacco Use Types Packs/Day Years Used Date Smoking Tobacco: Never Smokeless Tobacco: Never Alcohol Use Standard Drinks/Week Comments Yes 1 (1 standard drink = 0.6 oz pur e alcohol) about 4 or 5 drinks a month PHQ-2 Answer Date Recorded PHQ-2 Score - If the patient scores above 3, please move on to questions 3-9 0 01/29/2020 Comments No Sex and Gender Information Value Date Recorded Sex Assigned at Not on file Legal Sex Female 7:00 PM CDT Gender Identity Not on file Sexual Orientation Not on file COVID-19 Exposure Response Date Recorded In the last month, have you been in contact with someone who was confirmed or suspected to have Coronavirus / COVID-19? 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 documented as of this encounter Plan of Treatment Not on file documented as of this encounter Visit Diagnoses Not on filedocumented in this encounter Care Teams Greige Goods Examiner Relationship Specialty Start Date End Date Manish Quiñonez MD [address] [place] [address] PCP - General INTERNAL MEDICINE 10/18/19 08/04/23 Anita Hernandez PA [address] [place] [address] PCP - General PHYSICIAN EQUIPMENT WORKER 08/05/23 Cristino Torres MD [address] [place] [address] Consulting Physician CARDIOTHORACIC SURGERY 04/02/20 Pedro Phipps DO [address] [facility] [address] [place] [id number] Consulting Physician Internal Medicine Pulmonary Disease 04/02/20 documented as of this encounter
--- OUTSIDE RECORDS SUMMARY | 2024-12-28 10:12 | XMS_ITS | Encounter Summary ---
Author Organization [facility] Address [address] [place] [address] Phone Care Team Providers Care Medical Office Technology Instructor Name Role Phone Manish Quiñonez MD Primary Care Provider [phone] No, Physician Unavailable Richie Ceballos MD Unavailable [phone] Encounter Details Date Type Department Care Team (Latest Contact Info) Description 01/11/2023 Orders Only [facility] Jacy Valadez, RN [address] 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 Gender Identity Not on file Sexual Orientation Not on file documented as of this encounter Plan of Treatment Not on file documented as of this encounter Procedures Procedure Name Priority Date/Time Associated Diagnosis Comments CARDIOLOGY DOCUMENT SCAN 01/11/2023 documented in this encounter Results * Cardiology Document Scan (01/11/2023) Anatomical Region Laterality Modality Other us Jacy Valadez RN CV CARDIAC SERVICES P ROCEDURES Final Result documented in this encounter Visit Diagnoses Not on filedocumented in this encounter Care Teams Medical Office Technology Instructor Relationship Specialty Start Date End Date Manish Quiñonez MD [facility] [place] [address] PCP - General Internal Medicine 11/30/17 No, Physician 11/30/17 Richie Ceballos MD [address] [facility] [address] [place] [address] Consulting Physician Cardiology 09/11/24 documented as of this encounter
--- OUTSIDE RECORDS SUMMARY | 2024-12-28 10:12 | XMS_ITS | Patient Health Record ---
Author Organization [facility] Address [address] [facility] [address] [place] [address] Support Name Relationship Address Phone Argentina Montez Guarantor Unknown [phone] Reason For Referral No Information Medications Medication SIG (Take, Route, Frequency, Duration) Notes Start Date End Date Status [id number] Ketamine 12%, Baclof en 2%, Bupivacaine 1%, Clyclobenzaprine 2%,Diclofenac 5%, Gabapentin 6%, AGRICULTURAL EQUIPMENT SALES ENGINEER 2% with Morphine 5%(plus Diphenhydramine 2%, TAC 0.1%)Apply BID-480gm *Reorder from [employer] for eRx and Interaction Alerts* 07/24/2011 Active Zocor 10 mg take 1 tablet (10 mg ) by oral route once daily in the evening Oral 1 03/29/2012 Active Adderall XR 20 mg take 1 capsule (20 m g) by oral route daily Oral *Pick strength-form from [employer] for eRX* 02/05/2012 Active CeleXA 10 MG take 1 tablet (10 mg ) by oral route once daily Oral 1 02/05/2012 Active Xanax 0.5 MG take 1 tablet (0.5 m g) by oral route 3 times per day Oral 3 06/12/2011 Active Retin-A 0.05 % apply to the affecte d area(s) by topical route once daily at bedtime External 1 07/03/2011 Active armour 15 mg 3x Vq-Qv-Vehn-Sat an d 3 1 on M-W-F *Reorder from [employer] for eRx and Interaction Alerts* 06/12/2011 Active Problems Problem Type SNOMED Code ICD Code Onset Dates Problem Status W/U Status Risk Notes Problem 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) (612091895) Attention deficit disorder of childhood 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 (314.00) 012 Active confirmed Problem Postmenopausal state (15848391) Asymptomatic postmenopausal status (age-related) (natural) (V49.81) 012 Active confirmed Problem Coagulation disorder (22583872) Coagulation defect, unspecified (D68.9) 012 Active confirmed Problem Hypothyroidism (61228718) Hypothyroidism, unspecified (E03.9) Active confirmed Problem Non-toxic goiter (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, unspecified (E04.9) 012 Active confirmed Problem Major depression, single episode (86071901) Major depressive disorder, single episode, unspecified (F32.9) Active confirmed Problem Migraine with aura (6238988) Migraine with aura, not intractable, without status migrainosus (G43.109) Active confirmed Problem Impaired fasting glucose (083971206) Impaired fasting glucose (R73.01) 012 Active confirmed Problem Adult health examination (760686836) Encounter for general adult medical examination without abnormal findings (Z00.00) 012 Active confirmed Problem Family history of malignant neoplasm of gastrointestinal tract (215239881) Family history of malignant neoplasm of digestive organs (Z80.0) Active confirmed Problem Pure hypercholesterolemia (515926402) Pure hypercholesterol emia, unspecified (E78.00) Active confirmed Plan Of Treatment No Information Insurance Providers Payer Name Payer Address Payer Phone Subscriber Number Group Number Insured Name Patient Relationship to Insured Coverage Start Date Coverage End Date DO NOT USE [id number] [place] Montez Self - patient is the insured 2 [employer] [address] [address] [place], [place] [id number] Tc [place] Self - patient is the insured 2 Medical (General) History Surgical History Surgery Date(Month/Year) Hysterectomy: TYESHA with BSO-Endometriosis , Date of Procedure: 1997; 2011-06-12 Plastic surgery: Facelift, Date of Proce dure: 1999; 2011-06-12 ENT surgery: Growth on side of Left ear-in 20's and regrew and had it removed again February 2010-; 2011-06-12 Breast Bx: Right and Left-Benign cyst, D ate of Procedure: age 18's; 2011-06-12
--- OUTSIDE RECORDS SUMMARY | 2024-12-28 10:12 | XMS_ITS | Clinical Summary ---
Author Organization [facility] Address [address] [place] [address] Care Team Providers Care Nursing Teacher Name Role Phone Manish Quiñonez MD Primary Care Provider [phone] No, Physician Unavailable Richie Ceballos MD Unavailable [phone] Allergies Active Allergy Reactions Criticality Noted Date Comments Levothyroxine Other (See comments) Low 12/11/2016 Says the synthroid does not work for her Lisinopril Cough Low 03/16/2024 Other Swelling Medium 02/16/2020 Says when she eats beef she has congestion, mucus, says symptoms are mild and she does eat some beef Sulfa (Sulfonamide Antibiotics) Headache Low 06/12/2011 Medications ARMOUR THYROID 60 mg tablet 1 tablet (60 mg total) daily 0 09/21/2017 Active simvastatin (ZOCOR) 10 mg tablet Take 1 tablet (10 mg total) by mouth nightly 0 09/21/2017 Active dextroamphetami ne-amphetamine (ADDERALL) 10 mg tablet 1 tablet (10 mg total) every morning 0 11/02/2017 Active citalopram (CeleXA) 20 mg tablet Take 1 tablet (20 mg total) by mouth daily 0 09/21/2017 Active olmesartan (BENICAR) 20 mg tablet Take 0.5 tablets (10 mg total) by mouth daily 02/23/2024 Active dextroamphetami ne-amphetamine (ADDERALL) 20 mg tablet nightly 04/26/2024 Active aspirin 81 mg enteric coated tablet Take 1 tablet (81 mg total) by mouth daily 90 tablet 3 05/18/2024 Active Active Problems Problem Noted Date Diagnosed Date Prediabetes 09/11/2024 Coronary artery disease invo lving [place] coronary artery of [place] heart without angina pectoris 05/21/2024 Urinary incontinence 07/29/2022 Mediastinal mass 04/01/2020 Abnormal chest xray 01/29/2020 GLEZ (dyspnea on exertion) 01/29/2020 Primary hypothyroidism 11/30/2017 Immunizations Immunization Administration Dates Next Due Tdap 12/11/2016 Social History Tobacco Use Types Packs/Day Years Used Date Smoking Tobacco: Never Passive Smoke Exposure: Past Smokeless Tobacco: Never Tobacco Cessation:Counseling Given: Not Answered Comments Unknown Sex and Gender Information Value Date Recorded Sex Assigned at Not on file Legal Sex Female 2:44 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 Gender Identity Not on file Sexual Orientation Not on file Obstetrics History Last Filed Vital Signs Vital Sign Reading Time Taken Comments Blood Pressure 160/72 09/18/2024 10:35 AM CDT Pulse 74 09/18/2024 10:35 AM CDT Temperature 37.1 C (98.7 F) 09/18/2024 10:35 AM CDT Respiratory Rate 16 09/11/2024 11:0 1 AM CDT Oxygen Saturation 99% 09/18/2024 10: 35 AM CDT Inhaled Oxygen Concentration - - Weight 58.9 kg (129 lb 14.4 oz) 025 10:35 AM CDT Height 154.9 cm (5' 0.98) 09/18/2024 1 0:35 AM CDT Body Mass Index 24.56 09/18/2024 10:35 AM CDT Plan of Treatment Health Maintenance Due Date Last Done Comments Breast Cancer Screening-Mammogram 1955 Colon Cancer Screening-Colonoscopy 1955 Depression Screening 1955 Fall Risk Assessment 1955 Hepatitis C Screening 1955 Hepatitis B Screening 10/31/1971 Pneumococcal vaccine 65+ (1 of 1 - PCV) 10/31/2003 Zoster Vaccine (1 of 2) 10/31/2003 Well Visit 65+ 2018 Osteoporosis Screening-Bone Density Scan 01/23/2023 01/23/2021 Covid-19 Vaccine (3 - season) 2024, 02/24/2021 Influenza Vaccine (#1) 2025 DTaP/Tdap/Td Vaccine (2 - Td or Tdap) 12/11/202612/2016 Insurance MEDICARE [facility] MEDICARE [employer] Care Teams Nursing Teacher Relationship Specialty Start Date End Date Manish Quiñonez MD [address] [place] [address] PCP - General Internal Medicine 11/30/17 No, Physician 11/30/17 Richie Ceballos MD [address] [place] [address] [address] [place] [address] Consulting Physician Cardiology 09/11/24
--- OUTSIDE RECORDS SUMMARY | 2024-12-28 10:12 | XMS_ITS | Referral Summary ---
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
--- OUTSIDE RECORDS SUMMARY | 2024-12-28 10:13 | XMS_ITS | Encounter Summary ---
Author Organization [facility] Address [address] [place] [address] Care Team Providers Care Patient Carrier Name Role Phone Unavailable Primary Care Provider Unavailabl e Encounter Details Date Type Department Care Team (Latest Contact Info) Description 12/02/2001 Outpatient Historical [facility] Dileep Edwards BLEPHAROCHALASIS (Primary Dx) Social History Tobacco Use Types Packs/Day Years Used Date Smoking Tobacco: Never Assessed Comments Unknown Sex and Gender Information Value Date Recorded Sex Assigned at Not on file Legal Sex Female 2:59 AM POWER ORIGINATOR Gender Identity Not on file Sexual Orientation Not on file documented as of this encounter Plan of Treatment Not on file documented as of this encounter Visit Diagnoses Diagnosis Blepharochalasis- Primary documented in this encounter
--- OUTSIDE RECORDS SUMMARY | 2024-12-28 10:13 | XMS_ITS | Clinical Summary ---
Author Organization [facility] Address [facility] [place] [address] Care Team Providers Care Doll Wig Hackler Name Role Phone Cristino Torres MD Unavailable [phone] Pedro Phipps DO Unavailable [phone] Anita Hernandez Primary Care Provider [phone] Allergies Active Allergy Reactions Criticality Noted Date Comments Beef-Derived Drug Products Swelling 02/16/2020 Says when she eats beef she has congestion, mucus, says symptoms are mild and she does eat some beef Levothyroxine Other (see comment) 12/11/2016 Says the synthroid does not work for her Milk-Related Compounds Other (see comment) 02/05 Congestion, mucus, does eat some ice cream, butter 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 0 Active simvastatin 10 MG tablet Take 10 mg by mouth nightly at bedtime. 0 Active amphetamine-dex troamphetamine 20 MG tablet Take 1 tablet by mouth daily. In the AM along with 10 mg in the afternoon 0 Active amphetamine-dex troamphetamine 10 MG tabletIndicatio ns:adderal Take 1 tablet by mouth daily. Indications: adderal In the afternoon 0 Active citalopram 20 MG tablet Take 20 mg by mouth daily. 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 Abnormal chest xray 01/29/2020 GLEZ (dyspnea on exertion) 01/29/2020 Family History Medical History Relation Comments Multiple Sclerosis Brother Heart Attack Father Heart Disease Father Cancer Mother colon cancer Dementia Mother Hypertension Mother Valve Disease Mother pacemaker Mother Relation Status Comments Brother Daughter Alive Father (Age 64) of heart problems Maternal Grandfather Maternal Grandmother Mother (Age 93) of sherita ia, lumps in breast, fell and broke bones Paternal Grandfather Paternal Grandmother Son Alive Social History Tobacco Use Types Packs/Day Years [...] Sign Reading Time Taken Comments Blood Pressure 110/70 05/24/2020 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 Pulse 69 05/24/2020 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 Temperature 36.6 C (97.9 F) 04/30/2020 9:46 AM LYFT DRIVER Respiratory Rate 17 04/30/2020 5:30 PM LYFT DRIVER Oxygen Saturation 95% 04/30/2020 4:30 PM LYFT DRIVER Inhaled Oxygen Concentration - - Weight 59.4 kg (131 lb) 05/24/2020 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 Height 154.9 cm (5' 1) 05/24/2020 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 Body Mass Index 24.75 05/24/2020 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 Plan of Treatment Health Maintenance Due Date Last Done Comments Colorectal Cancer Screening Colonoscopy (10 Years) 1953 Hepatitis C 10/31/1971 Mammogram Screening 1993 Pneumococcal Vaccine: 50+ Ye ars (1 of 1 - PCV) 10/31/2003 Zoster Vaccines (1 of 2) 10/31/2003 Annual Medicare Wellness Visit 2018 COVID-19 Vaccine ( - 2023-2 5 season) 2024 DTaP, Tdap and Td Vaccines ( 2 - Td or Tdap) 12/11/2026 12/11/2016 RSV Immunization or 60+ Years (1 - 1-dose 75+ series) 2028 Dexa Scan (General) Completed 01/23/2021 Meningococcal B Vaccine Aged Out No l onger eligible based on patient's age to complete this topic Meningococcal Vaccine Aged Out No johanny doug eligible based on patient's age to complete this topic RSV Immunizations Under 20 Months Aged Out No longer eligible based on patient's age to complete this topic Procedures Procedure Name Priority Date/Time Associated Diagnosis Comments BONE DENSITY/DEXA Routine 01/23/2021 10: 19 AM CDT Osteopenia Postmenopausal from Last 3 Months or Most Recently Relevant to Health Maintenance Results * BONE DENSITY/DEXA (01/23/2021 10:19 AM CDT) Anatomical Region Laterality Modality Bone Bone Density 01/23/2021 12:0 0 PM CDT Impressions 01/23/2021 12:00 PM CDT FINDINGS AND IMPRESSION: Examination performed on a [employer] SL .: LUMBAR SPINE L2-L4: 1. BMD: 0.973 g/cm2. 2. T score: -1.0. Previous T score: No previous available. 3. WHO classification: Mild osteopenia. 4. Fracture risk: Low. LEFT FEMORAL NECK: 1. BMD: 0.609 g/cm2. 2. T score: -2.2. Previous T score: No previous available. 3. WHO classification: Very osteopenic. 4. Fracture risk: Low. Recommendations: Recommend therapy and follow up to assess response. Voice recognition software utilized. Referred By: GREER BUSTILLO Interpreted By: Narendra Coles, 01/23/2021 12:00 PM Narrative 01/23/2021 12:00 PM CDT Examination: BONE DENSITY/DEXA Exam date/time: 01/23/2021 10:01 AM CLINICAL HISTORY: Postmenopausal . COMPARISON STUDIES: No previous available. Procedure Note Narendra Coles MD - 01/23/2021 Examination: BONE DENSITY/DEXA Exam date/time: 01/23/2021 10:01 AM CLINICAL HISTORY: Postmenopausal . COMPARISON STUDIES: No previous available. FINDINGS AND IMPRESSION: Examination performed on a [employer] SL .: LUMBAR SPINE L2-L4: 1. BMD: 0.973 g/cm2. 2. T score: -1.0. Previous T score: No previous available. 3. WHO classification: Mild osteopenia. 4. Fracture risk: Low. LEFT FEMORAL NECK: 1. BMD: 0.609 g/cm2. 2. T score: -2.2. Previous T score: No previous available. 3. WHO classification: Very osteopenic. 4. Fracture risk: Low. Recommendations: Recommend therapy and follow up to assess response. Voice recognition software utilized. Referred By: GREER BUSTILLO Interpreted By: Narendra Coles, 01/23/2021 12:00 PM Greer Bustillo PA-C DEXA Final Resu lt from Last 3 Months or Most Recently Relevant to Health Maintenance Insurance [place]ICARE [place] [employer] [place] [address] [place] [phone] [facility] Bar[employer] Exchange Advance Directives * Full Code (Latest Code Status on File) Date Activated Date Inactivated Comments 04/30/2020 2:46 PM 04/30/2020 8:27 PM Care Teams Doll Wig Hackler Relationship Specialty Start Date End Date Anita Hernandez PA [address] [place] [id number] PCP - General PHYSICIAN [employer] CLAIM EXAMINER 08/05/23 Cristino Torres MD Consulting Physician CARDIOTHORACIC SURGERY 04/02/20 Pedro Phipps DO [address] [facility] [address] [place] [address] Consulting Physician Internal Medicine Pulmonary Disease 04/02/20
--- OUTSIDE RECORDS SUMMARY | 2024-12-28 10:13 | XMS_ITS | Encounter Summary ---
Author Organization [facility] Address [address] [place] [address] Care Team Providers Care Records And Tape Recordings Engineer Name Role Phone Unavailable Primary Care Provider Unavailabl e Encounter Details Date Type Department Care Team (Late st Contact Info) Description 12/02/2001 Outpatient Historical [facility]) [address] 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
--- OUTSIDE RECORDS SUMMARY | 2024-12-28 10:13 | XMS_ITS | Clinical Summary ---
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
== END 2024-12-28 10:08 | disposition home or self-care (01) ==
LOC: ANHIMG 10:09
PROVIDERS: PCP Physician Assistant Medical; Visit Provider Physician Assistant Medical
DX: Z12.31 Encounter for screening mammogram for malignant neoplasm of breast (principal)
CPT/HCPCS: 77063; 77067

== ENCOUNTER 2025-03-05 09:45 | Outpatient (RCR) | payer MEDICARE, OTHER, SELFPAY ==
--- NOTE | 2025-02-07 14:16 | PTOPEVAL1 ---
Assessment and note entered by Carito Tirado, PT Evaluation Information Assessment Status Evaluation Diagnosis BPPV unspec ICD-10 Condition Codes (PT) Difficulty Walking R26.2,Abnormalities of gait and mobility R26.9,Dizziness and Giddiness R42,BPPV right ear H81.11 Onset ~2 weeks Subjective Information Pt states has had this before, but has never matthew bad enough to keep her from going to work. This time is at night, getting out of bed and rolling over, spinning. Reports closing her eyes helps keep her from puking Reports last time waited until it went away on its own Reported Pain Level Pain Score 0: Self Report Assessment PT Clinical Summary Pt presents with history of on and off vertigo stating she had never had it badly before but some days had difficulty walking. Pt demonstrates clear right downward torsional nystagmus with R gaye-Hallpike maneuver and significant reaction with nausea and diaphoresis. Performed a modified version of Randy david today and educated patient in process of decreasing symptoms as proceeds through therapy. Pt will benefit from PT in order to address BPPV, improve symptoms, and reduce fall risk with mobility. 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 The patient will be advanced safely and appropriately in order for the patient to progress towards his/her prior level of function. Additional exercises will be introduced and as well as a comprehensive home exercise program upon discharge, if needed, ?to ensure carryover of functional gains achieved in the clinic. This treatment plan has been reviewed and agreement upon by the patient.
--- NOTE | 2025-02-07 14:16 | OPREHPOC ---
Outpatient Therapy Plan of Care This is a Multidisciplinary Plan of Care that may contain components documented by all disciplines (PT, OT, and ST.) PT Problem 1 PT Problem #1 Knowledge Deficit PT Goal 1 Goal / Goal Update Pt will be independent in HEP Pt will verbalize understanding of diagnosis and prognosis Target Visit 5 PT Problem 2 PT Problem #2 Impaired Sensation PT Goal 1 Goal / Goal Update Pt will tolerate R Randy manuever without symptoms Target Visit 10 PT Goal 2 Goal / Goal Update Pt will report resolution of symptoms with bending , or movement in bed.
--- NOTE | 2025-03-05 10:08 | PTOPDC ---
Assessment and note entered by Carito Tirado, PT Evaluation Information Assessment Status Discharge Diagnosis BPPV unspec ICD-10 Condition Codes (PT) Difficulty Walking R26.2,Abnormalities of gait and mobility R26.9,Dizziness and Giddiness R42,BPPV right ear H81.11 Onset ~2 weeks Subjective Information No more spinning with rolling over in bed, no spinning or dizziness with bending, looking up and behind her for her clock did not illicit symptoms . No symptoms since last session Reports feeling 100% improved Reported Pain Level Pain Score 0: Self Report Assessment PT Clinical Summary Pt has attended 8 therapy visits including evaluation for right BPPV. Initially symptoms were very severe and required modified Randy maneuvers due to tolerance. She has now completed her program, has 100% resolution of symptoms, and reported she feels better than she had in years in a previous session. Pt has been provided HEP and instructed on when to return to therapy in the future if needed. Pt is thus being discharged for completion of program. Plan of Care PT Services Indicated No
== END 2025-03-05 10:19 | disposition home or self-care (01) ==
LOC: ANHHIPT 09:45
PROVIDERS: PCP Physician Assistant Medical; Visit Provider Physician Assistant Medical
DX: H81.11 Benign paroxysmal vertigo, right ear (principal); R26.9 Unspecified abnormalities of gait and mobility; R26.2 Difficulty in walking, not elsewhere classified
CPT/HCPCS: 95992; 97161; 97530; 97750